=== PATIENT | female | born 1965 | race Caucasian/White ===

== ENCOUNTER → 2017-08-11 | Outpatient (REF) | payer OTHER ==
[~2017-08-11] MED LIST: ADV250INH INH; ALBU17IN INH; BUSP5TA PO; CYCL10TA PO; PROT1TAB2 PO; SING10TA32 PO; VICO7.5T11 PO
[2017-08-11 17:42] LABS: MEAN CORPUSCULAR HEMOGLOBIN 28.5 pg (27.0-33.0); MEAN CORPUSCULAR HGB CONC 33.1 g/dl (32.0-36.5); MEAN CORPUSCULAR VOLUME 86.2 fl (80.0-96.0); PLATELET COUNT, AUTOMATED 274 10^3/uL (150-450); RED CELL DISTRIBUTION WIDTH 15.1 % (11.5-14.5); WHITE BLOOD COUNT 9.1 10^3/uL (4.0-10.0)
[2017-08-11 17:47] LABS: ADD MANUAL DIFFER YES; BLASTS POS FLAG; POSITIVE DIFF POS FLAG; POSITIVE MORPH POS FLAG
[2017-08-11 17:48] LABS: DIFF SLIDE NUMBER 279
[2017-08-11 18:31] LABS: ERYTHROCYTE SEDIMENTATION RATE 37 mm/hr (0-30)
[2017-08-11 19:39] LABS: BANDS 1 % (< 11)
[2017-08-16 00:07] LABS: HEPTACARBOXYLPORPHYRIN URINE 2 ug/L (0-2); HEXACARBOXYLPORPHYRIN URINE <1 ug/L (0-1); PENTACARBOXYLPORPHYRIN URINE 2 ug/L (0-2); PORPHOBILINOGEN RANDOM URINE 0.6 mg/L (0.0-2.0); UROPORPHYRIN URINE 18 ug/L (0-20)
== END ==
LOC: M SFHCCLAY 13:58
PROVIDERS: ATTEND Family Medicine
DX: R21 Rash and other nonspecific skin eruption (principal); M54.2 Cervicalgia

== ENCOUNTER → 2017-09-02 | Outpatient (CLI) | payer OTHER ==
[~2017-09-02] MED LIST changes: +HEPARIN 1,000 UNITS/ML 10ML VIAL (FOR RADIOLOGY& DIALYSIS ONLY) As Ordered ONE; +ISOVUE-300 61% 50ML VIAL (Q9967) As Ordered ONE; +LIDOCAINE 2% MDV 20 ML VIAL As Ordered ONE; +MIDAZOLAM INJ 2 MG/2 ML VIAL (J2250) As Ordered ONE; +NORCO, ANEXSIA 5/325MG TABLET (HYDROcodone/ACETAMINOPHEN) As Ordered ONE; +NORCO, ANEXSIA 5/325MG TABLET (HYDROcodone/ACETAMINOPHEN) PO ONE; +ONDANSETRON 4MG/2ML VIAL (J2405) As Ordered ONE; +PROTAMINE SULF INJ 50 MG/5 ML VIAL (J2720) As Ordered ONE; +fentaNYL 100 MCG/2 ML INJECTION (J3010) As Ordered ONE
--- NOTE | 2017-09-10 12:14 | REPIR ---
DATE OF PROCEDURE: 09/02/2017 PREPROCEDURE DIAGNOSES: Left lower extremity claudication. Aortoiliac arterial atherosclerotic occlusive disease. POSTPROCEDURE DIAGNOSES: Left lower extremity claudication. Aortoiliac arterial atherosclerotic occlusive disease. PROCEDURE: Aortogram, iliofemoral angiogram, bilateral lower extremity angiography, left common iliac and external iliac artery angioplasty and stent with a 10 x 49 wall stent post dilated with an 8 x 4 balloon. Right common iliac artery angioplasty and stent with a 10 x 49 wall stent post dilated with an 8 x 4 balloon. Aortic angioplasty with two 8 x 4 balloons inflated simultaneously. Bilateral #6-[place] MYNX closure device. SURGEON: Dr. Georgi De La Torre. GREEN MEAT GRADER: Diana Cerna. ANESTHESIA: Local with moderate sedation with 6 mg of Versed, 300 mcg of fentanyl and 20 mL of 2% lidocaine. Moderate sedation time was from 10:22 a.m. to 11:40 a.m. for a total of 78 minutes. SPECIMENS: None. IMPLANTS: Bilateral #6-[place] MYNX closure device. Bilateral common iliac artery and external iliac artery angioplasty and stent with 10 x 49 wall stents. INDICATION: The patient is a 52-year-old female with bilateral lower extremity claudication left greater than right who underwent a CT angiogram showing severe calcific occlusive disease in the left common and external iliac artery. The patient will undergo an angiogram with possible angioplasty and/or stent. Risks, benefits and alternative treatment options were discussed with the patient. DESCRIPTION OF PROCEDURE: The patient was taken to the angiography suite and placed supine on the angiography table and then prepped and draped in a standard surgical fashion. A time-out was completed confirming the correct patient, procedure and laterality. The right common femoral artery was then cannulated with a micropuncture needle after anesthetizing the overlying skin with 1% lidocaine. A micropuncture wire was advanced through the micropuncture needle was upsized to a micropuncture sheath. The advanced wire was advanced through the micropuncture sheath which was upsized to a #5-[place] Islander sheath. An Omniflex catheter was advanced over the bent wire and placed in the aorta and aortogram was performed. The catheter was pulled down to the level of the bifurcation of the iliac arteries and then iliofemoral angiogram was performed. This showed severe disease in both common and external iliac arteries. The left common femoral artery was then cannulated and again a catheter and wire were placed in the aorta from the left femoral approach after which the common iliac arteries bilaterally were angioplastied and stented with 10 x 49 wall stents. These were post dilated with 8 x 4 balloons bilaterally. The aorta was then also angioplastied with two 8 x 4 balloons simultaneously. Followup angiogram showed good results with no residual stenosis and then the sheath were removed and bilateral MYNX closure devices used to close the arteriotomies with an [id number] minutes of adjuvant pressure applied for hemostasis. Dressing were then applied. The patient tolerated the procedure well. All instrument, sponge and needle counts were correct at the end of the case. There were no complications. Dr. De La Torre was present for and directed the entire case. The patient was transferred to the holding area and subsequently discharged in stable condition. RADIOLOGIC SUPERVISION INTERPRETATION: The aortogram showed the aorta to be patent except for the distal aorta, which showed stenosis at the common iliac arteries, which were then angioplastied and stented with 10 x 49 wall stents bilaterally. Completion aortogram showed resolution of the stenosis with good flow into the aorta and into the iliac arteries distally. Bilateral #6-[place] closure devices were used to close the arteriotomies in the right and left femoral arteries.
== END | disposition home or self-care (01) ==
LOC: M IRPRO 08:31
PROVIDERS: ATTEND Surgery Vascular Surgery
DX: I70.212 Atherosclerosis of native arteries of extremities with intermittent claudication, left leg (principal); I70.201 Unspecified atherosclerosis of native arteries of extremities, right leg; I70.0 Atherosclerosis of aorta
CPT/HCPCS: 37221; 37246; C1725; C1760; C1769; C1876; C1887; C1894; J2250; J2405; J2720; J3010; Q9967

== ENCOUNTER → 2017-09-30 | Outpatient (REF) | payer OTHER ==
[~2017-09-30] MED LIST changes: -HEPARIN 1,000 UNITS/ML 10ML VIAL (FOR RADIOLOGY& DIALYSIS ONLY) As Ordered ONE; -ISOVUE-300 61% 50ML VIAL (Q9967) As Ordered ONE; -LIDOCAINE 2% MDV 20 ML VIAL As Ordered ONE; -MIDAZOLAM INJ 2 MG/2 ML VIAL (J2250) As Ordered ONE; -NORCO, ANEXSIA 5/325MG TABLET (HYDROcodone/ACETAMINOPHEN) As Ordered ONE; -NORCO, ANEXSIA 5/325MG TABLET (HYDROcodone/ACETAMINOPHEN) PO ONE; -ONDANSETRON 4MG/2ML VIAL (J2405) As Ordered ONE; -PROTAMINE SULF INJ 50 MG/5 ML VIAL (J2720) As Ordered ONE; -fentaNYL 100 MCG/2 ML INJECTION (J3010) As Ordered ONE
[2017-09-30 18:15] LABS: ANION GAP 8 MEQ/L (8-16); BLOOD UREA NITROGEN 9 MG/DL (7-18); CALCIUM LEVEL 9.2 MG/DL (8.5-10.1); CARBON DIOXIDE LEVEL 26 MEQ/L (21-32); CHLORIDE LEVEL 108 MEQ/L (98-107); CREATININE FOR GFR 0.74 MG/DL (0.55-1.02); GLOMERULAR FILTRATION RATE > 60.0 (>51); GLUCOSE, FASTING 106 MG/DL (70-105); POTASSIUM SERUM 4.1 MEQ/L (3.5-5.1); SODIUM LEVEL 142 MEQ/L (136-145)
[2017-09-30 19:03] LABS: BASO % 0.4 % (0.0-1.0); EOS # 0.4 10^3/uL (0.0-0.50); EOS % 4.5 % (0.0-3.0); IMMATURE GRANULOCYTE % 0.2 % (0-0); LYMPH # 3.8 10^3/uL (1.5-4.5); LYMPH % 46.2 % (24.0-44.0); MEAN CORPUSCULAR HEMOGLOBIN 28.6 pg (27.0-33.0); MEAN CORPUSCULAR HGB CONC 32.9 g/dl (32.0-36.5); MEAN CORPUSCULAR VOLUME 86.9 fl (80.0-96.0); MONO # 0.6 10^3/uL (0.0-0.8); MONO % 7.3 % (0.0-5.0); NEUTROPHILS # 3.4 10^3/uL (1.8-7.7); NEUTROPHILS % 41.4 % (36.0-66.0); PLATELET COUNT, AUTOMATED 289 10^3/uL (150-450); RED CELL DISTRIBUTION WIDTH 14.9 % (11.5-14.5); WHITE BLOOD COUNT 8.2 10^3/uL (4.0-10.0)
== END ==
LOC: M SFHCCLAY 11:35
PROVIDERS: ATTEND Family Medicine
DX: R05 Cough (principal); E87.6 Hypokalemia

== ENCOUNTER → 2018-06-08 | Outpatient (CLI) | payer MEDICARE, OTHER | LOC: M CLY 13:44 | DX: R55 Syncope and collapse (principal); Z98.1 Arthrodesis status; Z79.899 Other long term (current) drug therapy | CPT/HCPCS: 71046; 84443 ==

== ENCOUNTER → 2018-06-08 | Outpatient (REF) | payer MEDICARE, OTHER ==
[2018-06-08 18:00] LABS: BASO % 0.3 % (0.0-1.0); EOS # 0.2 10^3/uL (0.0-0.50); EOS % 1.5 % (0.0-3.0); IMMATURE GRANULOCYTE % 0.4 % (0-3.0); LYMPH # 4.5 10^3/uL (1.5-4.5); LYMPH % 44.7 % (24.0-44.0); MEAN CORPUSCULAR HGB CONC 32.5 g/dl (32.0-36.5); MEAN CORPUSCULAR VOLUME 89.3 fl (80.0-96.0); MONO # 0.7 10^3/uL (0.0-0.8); MONO % 7.2 % (0.0-5.0); NEUTROPHILS # 4.6 10^3/uL (1.8-7.7); NEUTROPHILS % 45.9 % (36.0-66.0); PLATELET COUNT, AUTOMATED 247 10^3/uL (150-450); RED BLOOD COUNT 4.48 10^6/uL (4.00-5.40); RED CELL DISTRIBUTION WIDTH 14.5 % (11.5-14.5); WHITE BLOOD COUNT 10.1 10^3/uL (4.0-10.0)
[2018-06-08 18:14] LABS: ALBUMIN 3.4 GM/DL (3.2-5.2); ALBUMIN/GLOBULIN RATIO 0.89 (1.00-1.93); ALKALINE PHOSPHATASE 98 U/L (45-117); ALT/SGPT 11 U/L (12-78); ANION GAP 6 MEQ/L (8-16); AST/SGOT 5 U/L (7-37); BILIRUBIN,TOTAL 0.2 MG/DL (0.2-1.0); BLOOD UREA NITROGEN 12 MG/DL (7-18); CALCIUM LEVEL 9.3 MG/DL (8.5-10.1); CARBON DIOXIDE LEVEL 25 MEQ/L (21-32); CHLORIDE LEVEL 111 MEQ/L (98-107); CREATININE FOR GFR 0.79 MG/DL (0.55-1.30); FREE T4 0.98 NG/DL (0.76-1.46); GLOMERULAR FILTRATION RATE > 60.0 (>51); GLUCOSE, FASTING 108 MG/DL (70-100); POTASSIUM SERUM 4.4 MEQ/L (3.5-5.1); SODIUM LEVEL 142 MEQ/L (136-145); THYROID STIMULATING HORMONE 0.839 uIU/ML (0.358-3.740); TOTAL PROTEIN 7.2 GM/DL (6.4-8.2)
== END ==
LOC: M SFHCCLAY 13:34
DX: R55 Syncope and collapse (principal); Z79.899 Other long term (current) drug therapy
CPT/HCPCS: 84443

== ENCOUNTER → 2019-01-26 | Outpatient (REF) | payer MEDICARE, MEDICAID ==
[2019-01-26 17:39] LABS: ALT/SGPT 12 U/L (12-78); BILIRUBIN,TOTAL 0.3 MG/DL (0.2-1.0); BLOOD UREA NITROGEN 12 MG/DL (7-18); CALCIUM LEVEL 9.7 MG/DL (8.5-10.1); CARBON DIOXIDE LEVEL 26 MEQ/L (21-32); CHLORIDE LEVEL 108 MEQ/L (98-107); CREATININE FOR GFR 0.81 MG/DL (0.55-1.30); GLOMERULAR FILTRATION RATE > 60.0 (>51); GLUCOSE, FASTING 96 MG/DL (70-100); IRON (FE) 82 UG/DL (50-170); POTASSIUM SERUM 4.3 MEQ/L (3.5-5.1); SODIUM LEVEL 139 MEQ/L (136-145); TOTAL PROTEIN 7.6 GM/DL (6.4-8.2)
[2019-01-26 18:03] LABS: BASO % 0.3 % (0.0-1.0); EOS # 0.2 10^3/uL (0.0-0.50); EOS % 1.3 % (0.0-3.0); HEMATOCRIT 42.4 % (36.0-47.0); LYMPH # 4.5 10^3/uL (1.5-4.5); MEAN CORPUSCULAR HEMOGLOBIN 28.3 pg (27.0-33.0); MEAN CORPUSCULAR VOLUME 85.8 fl (80.0-96.0); MONO # 0.8 10^3/uL (0.0-0.8); MONO % 7.1 % (0.0-5.0); NEUTROPHILS # 5.7 10^3/uL (1.8-7.7); NEUTROPHILS % 50.9 % (36.0-66.0); PLATELET COUNT, AUTOMATED 328 10^3/uL (150-450); RED BLOOD COUNT 4.94 10^6/uL (4.00-5.40); WHITE BLOOD COUNT 11.2 10^3/uL (4.0-10.0)
== END ==
LOC: M SFHCCLAY 10:58
PROVIDERS: ATTEND Family Medicine
DX: I73.9 Peripheral vascular disease, unspecified (principal); R55 Syncope and collapse; E87.6 Hypokalemia; J01.01 Acute recurrent maxillary sinusitis; J45.909 Unspecified asthma, uncomplicated; F32.9 Major depressive disorder, single episode, unspecified; G47.09 Other insomnia; M54.2 Cervicalgia
CPT/HCPCS: 80053; 83540; 85025; G0463

== ENCOUNTER 2021-02-13 00:06 | Inpatient (IN) | payer MEDICARE, MEDICAID ==
[~2021-02-13] VITALS: Ht 177.8 cm; Wt 64.5 kg
[2021-02-13] VITALS (23 sets, daily range): BP systolic 103–152; BP diastolic 61–102
[~2021-02-13 00:06] MED LIST changes: +CYCL-707 PO; -CYCL10TA PO; -VICO7.5T11 PO; +VICO7.5T12 PO
[2021-02-13] MEDS ORDERED: MIDAZOLAM INJ 2MG/2ML VIAL (J2250 PER 1MG) IV PRN (04:10)
[2021-02-13] MEDS: IPRATROPIUM 0.5MG/ALBUTEROL 2.5MG INH SOL UD 3ML (DUONEB) NEB SCH ×5 (04:31→19:41)
[2021-02-13 04:54] LABS: ABG BASE EXCESS -2.6 (-2.0-2.0); ABG HCO3 23.2 MEQ/L (22.0-26.0); ABG O2 SATURATION 99.6 % (95.0-99.0); ABG PARTIAL PRESSURE CO2 43.8 mmHg (35.0-45.0); ABG STANDARD HCO3 22.3 MEQ/L (22.0-26.0); ABG TOTAL CO2 24.5 MEQ/L (22.0-29.0); ABG pH (ARTERIAL) 7.341 UNITS (7.350-7.450)
[2021-02-13] MEDS ORDERED: propofoL 1,000 MG in IV 1 EA IV SCH (04:55)
[2021-02-13 05:14] LABS: HEMATOCRIT 43.9 % (36.0-47.0); HEMOGLOBIN 14.1 g/dl (12.0-15.5); MEAN CORPUSCULAR HEMOGLOBIN 28.7 pg (27.0-33.0); MEAN CORPUSCULAR HGB CONC 32.1 g/dl (32.0-36.5); MEAN CORPUSCULAR VOLUME 89.2 fl (80.0-96.0); PLATELET COUNT, AUTOMATED 289 10^3/uL (150-450); RED BLOOD COUNT 4.92 10^6/uL (4.00-5.40); WHITE BLOOD COUNT 14.7 10^3/uL (4.0-10.0)
[2021-02-13 05:34] LABS: ATYPICAL LYMPH 3 % (0-5); LYMPHOCYTES 18 % (16-44); MONOCYTES 4 % (0-5); NEUTROPHILS 75 % (28-66); PLATELET ESTIMATE NORMAL (NORMAL)
[2021-02-13 05:41] LABS: ALBUMIN 3.4 GM/DL (3.2-5.2); ALT/SGPT 125 U/L (12-78); BILIRUBIN,TOTAL 0.3 MG/DL (0.2-1.0); BLOOD UREA NITROGEN 14 MG/DL (7-18); CALCIUM LEVEL 8.9 MG/DL (8.5-10.1); CARBON DIOXIDE LEVEL 25 MEQ/L (21-32); CHLORIDE LEVEL 113 MEQ/L (98-107); CHOLESTEROL LEVEL 305 MG/DL (< 200); CPK CREATINE PHOSPHOKINASE 116 U/L (26-192); CREATININE FOR GFR 0.73 MG/DL (0.55-1.30); GLOMERULAR FILTRATION RATE > 60.0 (>51); GLUCOSE, FASTING 133 MG/DL (70-100); LDH LACTATE DEHYDROGENASE 230 U/L (84-246); PHOSPHORUS LEVEL 3.5 MG/DL (2.5-4.9); POTASSIUM SERUM 4.1 MEQ/L (3.5-5.1); SODIUM LEVEL 142 MEQ/L (136-145); TOTAL PROTEIN 7.4 GM/DL (6.4-8.2); TRIGLYCERIDES LEVEL 229 MG/DL (<150); TROPONIN I 8.88 NG/ML (< 0.10)
[2021-02-13] MEDS ORDERED: CLOPIDOGREL 300 MG TAB (PLAVIX) NG STA (06:06)
[2021-02-13] MEDS ORDERED: ASPIRIN 325 MG TAB GT STA (06:06)
[2021-02-13] MEDS ORDERED: HEPARIN SOD (PORCINE) 5000UNITS/ML 1ML VIAL/SYRINGE IV PRN (06:10)
[2021-02-13] MEDS ORDERED: BREO1INH3 INH (06:14)
[2021-02-13] MEDS ORDERED: BACL10TA2 PO (06:14)
[2021-02-13] MEDS ORDERED: PROAAER10 INH (06:14)
[2021-02-13] MEDS ORDERED: ZOLP10TA2 PO (06:14)
[2021-02-13] MEDS: methylPREDNISolone 40MG 1ML VIAL IV SCH (06:29)
[2021-02-13] MEDS: HEPARIN DRIP 25,000 UNITS in IV 1 EA IV SCH (06:33)
--- NOTE | 2021-02-13 07:23 | HPE ---
HISTORY AND PHYSICAL DATE OF ADMISSION: 02/13/2021 CHIEF COMPLAINT: Altered mental status and respiratory failure. HISTORY OF PRESENT ILLNESS: Miss Jones is 55-year-old female with a past medical history of COPD/asthma, GERD, chronic neck and back pain, who presented at an outside hospital with complaints of lightheadedness and lethargy. History is obtained from the chart and from other collateral information as patient is currently intubated and unable to provide a history. As per the ED provider at the outside hospital, the patient had stated these symptoms started about two hours ago while she was at home. She had told them that she felt that she was going to pass out and then was also having episodes where she was dosing off. She had denied taking any drugs or any new medications. Of note, the patient's roommate had also presented to the same ED with altered mental status and periods of agitation as well. The roommate also had some bradycardia. There was a question of some ingestion with the patient and the roommate of unknown substance. She complained of some nausea but otherwise had not had any vomiting, denied any shortness of breath, no chest pain, no fevers or chills. The patient initially was lethargic but able to give some history. She did appear confused and had also been dosing off at times. The patient was at times hypertensive in the ED with systolic blood pressures up to 220 but was not tachycardic or hypoxic and had remained afebrile. She did have a U tox which was positive for opioids and she was given multiple doses of Narcan 1.2 mg and then additional 2 mg x3 as well as two doses of flumazenil 0.5 mg each. The patient was then noted to have worsening mental status, unarousable to sternal rub with periods, appears apneic and some sonorous respirations. GCS was reportedly 8 at that time. She continued to have pinpoint pupils as well as some hypertension. The patient was then intubated with etomidate and vecuronium reportedly with somewhat of a difficult intubation but was successful with a bougie assist with a size 6.5 endotracheal tube. There was thick white sputum suctioned post-intubation. A chest x-ray had confirmed the ET tube placement but no other reported abnormal findings in the lung turpin. The patient was started on sedation with propofol and did have improvement with her blood pressure as well. She was transferred here for further management. PAST MEDICAL AND SURGICAL HISTORY: 1. Asthma/COPD. 2. GERD. 3. Chronic neck and back pain. 4. Cholecystectomy. 5. Neck surgery. 6. Lumpectomy. 7. section. 8. Right knee surgery. 9. Bilateral femoral artery stents in 2017. 10. Insomnia. FAMILY HISTORY: Mother with a history of heart issues and pneumonia, hypertension and diabetes. There is a sibling with history of blood clot. SOCIAL HISTORY: Patient with a history of nicotine dependence, had previously been actively smoking but had previously denied any other recreational drug use. HOME MEDICATIONS: 1. Singulair. 2. Protonix. 3. Cyclobenzaprine. 4. Ibuprofen. 5. Ambien. 6. Albuterol p.r.n. 7. ALLERGIES: 1. ASPIRIN. 2. AMOXICILLIN. 3. CLAVULONIC ACID 4. QUESTIONABLY TO MORPHINE. PHYSICAL EXAMINATION: VITAL SIGNS: Temperature 97.2, pulse 89, respirations 15, O2 sat 100% on 50% FiO2. In: The patient was documented to have had at least 1.3 liters of normal saline at the outside ED. GENERAL: The patient is currently intubated and sedated on mechanical ventilation. She is responding to painful stimuli but is not following commands appropriately. HEENT: Normocephalic, atraumatic. Pupils are pinpoint bilaterally and sluggishly reactive to light. There are moist mucous membranes noted. There is an NG tube in place. NECK: Supple. Trachea is midline. There is no palpable cervical adenopathy, no JVD. CARDIAC: Somewhat distant heart sounds with a regular rate and rhythm. Normal S-1, S-2. Unable to clearly appreciate any murmurs. PULMONARY: There are coarse ventilator breath sounds with some rhonchi and diminished breath sounds with expiration and prolonged expiration. ABDOMEN: Soft, nontender, nondistended. No palpable organomegaly. EXTREMITIES: There is no significant lower extremity edema noted bilaterally. The patient has extensive tattoos on the extremities. LABORATORY DATA: From an outside facility showed WBC of 10.6, hemoglobin 13.4, platelets 261. Chemistries: Sodium is 140, potassium 4.2. Chloride is 103. Bicarb is 24.8, BUN 18, creatinine 0.9. Glucose is 118. There was no gas done prior to intubation except for a VBG with a reported normal pH. U tox was positive for opioids. Benzos, cocaine, alcohol negative. Salicylate and acetaminophen negative. AST, ALT 57/169, alk phos 170, troponin 0.019. Albumin is 3.8. UA showed trace ketones, negative leukocyte esterases, no bacteria, no WBC and trace protein. Respiratory: Viral panel was negative including SARS-CoV-2. Imaging at outside facility with head CT reportedly showing no acute intracranial pathology ASSESSMENT AND PLAN: Miss Jones is a 55-year-old female with a past medical history of asthma/COPD, chronic back and neck pain, GERD, who presented to an outside hospital with complaints of altered mental status with lethargy and presyncopal complaints. The patient was noted to be afebrile, was not tachycardic but did have episodes of hypertension. She had a U tox that was positive for opioids and upon review of her history, had previously been taking opioids for her chronic pain. The patient does not have it listed in her current medications. She may have had possible ingestion with her roommate who had also presented to the same ED later in the evening with altered mental status with agitation and confusion. The patient had been given multiple doses of Narcan in the ED and flumazenil with minimal improvement in her mental status. She became obtunded and was therefore intubated for airway protection due to her mental status. The patient was then transferred to ICU for further management. 1. Altered mental status likely secondary to intoxication of unknown substance. U tox was positive for opioids but patient did not respond to multiple doses of Narcan as well as flumazenil. Her pupils are still pinpoint. Suspect patient may have had ingestion of possible synthetic substance as her roommate had also presented with altered mental status and more periods of agitation and combativeness. Patient also had hypertension initially in ED, possible hypertensive urgency contributing to encephalopathy. We will continue her on propofol for sedation now while intubated and continue with versed p.r.n. for agitation. We will continue to monitor mental status and will attempt sedation medication and weaning trial in the morning to assess her mental status and for possible weaning from the ventilator. 2. Acute respiratory failure in the setting of intoxication/overdose. The patient is on ventilator currently with settings of PRBC of 450/15/45 and 7. She was intubated with size 6.5 ET tube and so has a slightly higher PEEP but will continue to wean down FiO2 as tolerated. On the ventilator, the patient appears to have evidence of obstructive airways disease and bronchospasm with elevated peak pressures and normal plateaus. Some of this is also likely due to increased resistance with her small ET tube as well as some increased secretions that were noted with suctioning. We will start her on nebulized bronchodilators with DuoNebs q.4 hours and we will also start her on Solu-Medrol. There was also possible difficult intubation initially in the outside hospital and they had required a bougie and so we will also help with any potential laryngeal edema prior to our weaning trials. We will continue daily chest x-rays and ABGs while intubated. Portable chest x-ray done here did not show any focal findings in the lung turpin. Her ET tube was somewhat deep and so that was adjusted. Continue with ventilator care with head elevation and chlorhexidine mouthwash. 3. Mild transaminitis. The patient reportedly did not have any abdominal pain, no significant nausea or vomiting. Her acetaminophen level was negative. We will continue to trend her liver function tests. We will also check CPK. 4. Hypertension. Improved with sedation, patient has remained normotensive. Initial EKG at outside facility with no acute ST changes and initial troponin was negative. Will repeat troponin to r/o. DVT prophylaxis: Lovenox. GI prophylaxis: Protonix. Code Status: FULL CODE. Total critical care time spent not including any procedures approximately one hour and 15 minutes. MTDD
[2021-02-13] MEDS ORDERED: ENOXAPARIN 40MG/0.4ML SYRINGE (J1650 PER 10MG) SC SCH (09:00)
[2021-02-13] MEDS ORDERED: CHLORHEXIDINE GLUCONATE 0.12 % 15ML UDC (PERIDEX ORAL RINSE) MT SCH (09:00)
[2021-02-13] MEDS: PANTOPRAZOLE 40MG VIAL (C9113 PER 1) IV SCH (09:44)
[2021-02-13 10:26] LABS: AMPHETAMINES LEVEL URINE NEGATIVE (NEGATIVE); BARBITURATES URINE NEGATIVE (NEGATIVE); BENZODIAZEPINES URINE NEGATIVE (NEGATIVE); CANNABINOIDS URINE NEGATIVE (NEGATIVE); COCAINE METABOLITE URINE NEGATIVE (NEGATIVE); METHADONE URINE NEGATIVE (NEGATIVE); OPIATES URINE NEGATIVE (NEGATIVE); PHENCYCLIDINE URINE NEGATIVE (NEGATIVE)
[2021-02-13 12:52] LABS: MB/CK RELATIVE INDEX 9.78 (< OR =4); TROPONIN I 7.49 NG/ML (< 0.10)
--- NOTE | 2021-02-13 13:11 | REP ---
INDICATION: Encephalopathy, On anticoagulation, R/O CVA. COMPARISON: None. TECHNIQUE: Axial CT images with multiplanar reformations. FINDINGS: No acute bleed or acute large vessel territorial infarct. Ventricles, cisterns and sulci are within normal limits. No mass effect or midline shift. No abnormal fluid collections. Scattered ill-defined hypodensities seen throughout the white matter is most consistent with sequelae of chronic microvascular ischemic disease. There is evidence of prior infarct in the vicinity of the right caudate with tissue loss and ex vacuo dilatation of the anterior horn of the right lateral ventricle. Paranasal sinuses and mastoid air cells are clear. IMPRESSION: No acute findings. 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 <Electronically signed by Elliot Quiroz > 02/13/21 0008
--- NOTE | 2021-02-13 13:43 | CCN ---
CRITICAL CARE NOTE DATE: 02/13/2021 UPDATE: The patient's troponins which were ordered upon arrival today the ICU had come back elevated at 8.88. Repeat EKG done at that time did not show any new concerning ST elevations or changes. She continued to remain normotensive and hemodynamically stable on the ventilator. She was given Aspirin and Plavix loading as well as being started on Heparin drip for anticoagulation. Patient has documented allergy to aspiring but tolerated the dose with no evidence of side effects. Further aspirin has been held but plavix is continued. This morning consult was also placed with Cardiology and she did also have an echocardiogram ordered. Later in the morning the patient was also noted to be more responsive on sedation. With weaning of the Propofol she was opening her eyes to voice and following some commands. She was placed on a weaning trial on the ventilator which she tolerated well with the pressure support trial. The patient was therefore extubated to BIPAP late in the morning. On BIPAP she was not tachypneic with good tidal volumes and saturation. She is answering questions briefly with one word but does continue to appear somewhat confused and is drowsy although does appear to be protecting and maintaining her airway well. Another head CT was ordered, particularly as she is now on anticoagulation. Her initial head CT at the outside hospital has shown evidence of an old prior CVA but no acute intracranial findings. The patient was also signed out to the Hospitalist Service. She will likely be taken off of the BIPAP later this afternoon. KAUSHAL
--- NOTE | 2021-02-13 20:17 | IPNPDOC ---
Subjective Date Seen The patient was seen on 02/13/21. Subjective Chief Complaint/HPI Mrs. Jones is a 55 year old female with COPD who was transferred here for AMS and respiratory failure. Patient was extubated this morning at 10:30AM. She was initially seen in the morning, but was still very lethargic. Did not answer my questions. She was seen again in the afternoon. She denies chest pain, nausea, or abdominal pain. She told me she was feeling okay. Denies remembering what happened this past week or last week. I spoke with her Ex- Boubacar. He defers to his son Peng Winchester to make medical decisions and gave permission to release information to him. Objective Physical Examination General Exam: Positive: Cooperative Eye Exam: Positive: EOMI; Negative: Sclera icteric Chest Exam: Positive: Clear to auscultation Heart Exam: Positive: Rate Normal, Regular Rhythm Abdomen Exam: Positive: Normal bowel sounds, Soft; Negative: Tenderness Neuro Exam: Positive: Normal Speech Psych Exam: Positive: Other (Confused); Negative: Anxiety Assessment /Plan Assessment Mrs. Jones is a 55 year old female with COPD who was transferred here for AMS and respiratory failure. Unclear cause for AMS although she may have taken a recreational drug. Her friend also was in the ED for lethargy/AMS. Son reports that she uses Delta8 and she may have been experimenting on another agent. Otherwise, she does have elevated troponin at 8.8. Cardiology, Dr. Wadsworth was consulted. Patient is on heparin drip and troponin are being trended. Plan/VTE VTE Prophylaxis Ordered?: Yes Plan 1. AMS/lethargy/acute respiratory failure -Unclear etiology -She may have experimented with something -Patient memory is currently poor, will revisit with patient about this topic when memory more clear -Hold sedating agents (zolpidem, baclofen, and cyclobenzaprine) 2. NSTEMI -Troponin at 8.8 -Cardiology consulted, recommendations appreciated -Heparin drip, trending troponin, echocardiogram -Continue with clopidogrel (aspirin allergy) 3. COPD -Continue Breo Ellipta and albuterol as needed -Solumedrol 4. GERD -Pantoprazole 5. DVT ppx -On heparin drip VS, I&O, 24H, Fishbone Vital Signs/I&O Vital Signs Date Time Temp Pulse Resp B/P (MAP) Pulse Ox O2 Delivery O2 Flow Rate FiO2 02/13/21 18:00 92 18 105/64 (78) 99 Nasal Cannula 2.0 02/13/21 16:00 30 02/13/21 16:00 99.5 I&O- Last 24 Hours up to 6 AM 02/13/21 05:59 Intake Total 0 ml Output Total 175 ml Balance -175 ml Laboratory Data 24H LABS Laboratory Tests 2 02/13/21 04:48: Blood Gas Bicarbonate Standard 22.3, Arterial Blood pH 7.341L, Arterial Blood Partial Pressure CO2 43.8, Arterial Blood Partial Pressure O2 211.0H, Arterial Blood Total CO2 24.5, Arterial Blood HCO3 23.2, Arterial Blood Base Excess - 2.6L, Arterial Blood Oxygen Saturation 99.6H 02/13/21 04:53: Neutrophils (%) (Auto) , Nucleated Red Blood Cells % (auto) 0.0, Neutrophils 75H, Lymphocytes (Manual) 18, Monocytes (Manual) 4, Atypical Lymphocytes 3, Red Blood Cell Morphology NORMAL, Platelet Estimate NORMAL, Anion Gap 4L, Glomerular Filtration Rate > 60.0, Calcium Level 8.9, Phosphorus Level 3.5, Total Bilirubin 0.3, Aspartate Amino Transf (AST/SGOT) 49H, Alanine Aminotransferase (ALT/SGPT) 125H, Alkaline Phosphatase 150H, Lactate Dehydrogenase 230, Total Creatine Kinase 116, Troponin I 8.88*H, Total Protein 7.4, Albumin 3.4, Albumin/Globulin Ratio 0.9L, Triglycerides Level 229H, Cholesterol Level 305H 02/13/21 04:54: Activated Partial Thromboplast Time 31.4 02/13/21 09:15: Urine Opiates Screen NEGATIVE, Urine Methadone Screen NEGATIVE, Urine Barbiturates Screen NEGATIVE, Urine Phencyclidine Screen NEGATIVE, Urine Amphetamines Screen NEGATIVE, Urine Benzodiazepines Screen NEGATIVE, Urine Cocaine Metabolite Screen NEGATIVE, Urine Cannabinoids Screen NEGATIVE 02/13/21 12:12: Activated Partial Thromboplast Time 41.7H, Total Creatine Kinase 92, Creatine Kinase MB 9.0H, Creatine Kinase MB Relative Index 9.78H, Troponin I 7.49*H CBC/BMP Laboratory Tests 02/13/21 04:53 Microbiology Microbiology 02/13/21 Gram Stain - Final, Resulted 02/13/21 Sputum Culture, Resulted Pending CATALINA AVILEZ DO Feb 13, 2021 20:17
--- NOTE | 2021-02-13 20:31 | ECGEPIP ---
[facility] Test Date: 2021-02-13 Pat Name: ARANZA REEVES Department: Room: [place] [address] Gender: Female Department Director: ESTER : 1965 Requested By: PHILIPPE BARNETT Order Number: [id number] Reading MD: Elieser Wadsworth Measurements Intervals [place] Rate: 85 P: 81 IN: 152 QRS: -57 QRSD: 74 T: 89 QT: 400 QTc: 476 Interpretive Statements Normal sinus rhythm Possible Left atrial enlargement Left anterior fascicular block Septal infarct , age undetermined, POSSIBLY ACUTE NO PRIOR Electronically Signed on 02-13-2021 20:31:06 EDT by Elieser Wadsworth
--- NOTE | 2021-02-13 22:28 | CR ---
CARDIOLOGY CONSULTATION DATE: 02/13/2021 REFERRING PHYSICIAN: Dr. Jing Noguera CONSULTING PHYSICIAN: Dr. Wadsworth REASON FOR CONSULTATION: Elevated troponin HISTORY OF PRESENT ILLNESS: Mrs. Jones is a 55-year-old female with a past medical history significant for chronic obstructive pulmonary disease, gastroesophageal reflux disease, chronic neck and back pain who had originally presented to [facility] with complaints of lightheadedness and lethargy. The history is mainly obtained from patient records at [place] as well as collateral as the patient is currently altered. It appears from the record that the patient had originally presented to the Emergency Department at [facility] [place] with a complaint of this lightheadedness and feeling tired. At the time she stated that the symptoms started approximately 2 hours before arriving at the E.D., while she was at home. The patient had described this as a feeling that she was going to pass out and had noted that she was dozing off. In the E.R. she had denied taking any drugs or new medications. As reported, the patient's roommate had apparently also arrived at the Emergency Department with altered mental status and agitation and was noted to be bradycardic. At that time there was some question of whether the patient and her roommate had ingested some form of toxic substance. The patient had denied any nausea, vomiting. She denied any shortness of breath, chest pain, fevers or chills. She was reported to be lethargic and dozing off at times. She was also hypertensive in the Emergency Department with systolic blood pressures upwards of 220. However she was not noted to be tachycardic or hypoxic. A urine toxicology was ordered at outside hospital which was positive for opioids, however was negative for any other findings. The patient was given Narcan 1.2 mg and an additional 2 mg x3 as well as 2 doses of Flumazenil. The patient was subsequently found to have worsening mental status. She became unarousable and had apneic respirations and a GCS of 8. The patient was noted to have pinpoint pupils as well as hypertension. She was subsequently intubated with Etomidate and Rocuronium. The patient was then transferred to [facility] for a higher level of care. On arrival to [facility] the patient was critically ill although stable. A cardiac troponin level was ordered which resulted in elevation at 8.88. The records from [facility] demonstrate that her troponin there was 0.012, indicating a significant elevation since her transfer. Cardiology Service was consulted for further evaluation and management of the patient's elevated troponin. PAST MEDICAL HISTORY: The patient's past medical history is significant for: 1. Asthma/COPD. 2. Gastroesophageal reflux disease. 3. Chronic neck and back pain. PAST SURGICAL HISTORY: The patient's past surgical history is significant for: 1. Cholecystectomy. 2. Lumpectomy. 3. Neck surgery. 4. Right knee surgery. 5. Bilateral femoral artery stents in 2017. 6. Caesarean section. FAMILY HISTORY: The patient reportedly has a family history of heart disease, hypertension and diabetes. She has a sibling with apparently a history of a blood clot. SOCIAL HISTORY: The patient has a history of nicotine dependence. It is unknown whether she has any other recreational or IV illicit drug use. HOME MEDICATIONS: 1. ProAir. 2. Baclofen. 3. Cyclobenzaprine. 4. Breo Ellipta. 5. Singulair. 6. Protonix. REVIEW OF SYSTEMS: The patient's review of systems was not completed as the patient is currently altered and intubated on mechanical ventilation. PHYSICAL EXAMINATION: VITAL SIGNS: Temperature 98.4, pulse 80, respiratory rate 18, blood pressure 109/61, pulse oximetry 99% on a ventilator. GENERAL APPEARANCE: The patient is currently intubated, sedated, on mechanical ventilation. She does respond to painful stimuli. She is not following commands but is currently sedated. She does remain critically ill. HEENT: Normocephalic and atraumatic. Eyes are anicteric. Pupils are equal and reactive although somewhat pinpoint. Her mucous membranes are pink and moist. There is an NG tube and an endotracheal tube currently in place. Dentition is fair. NECK: No jugular venous distention. Her neck is supple. Trachea is midline. CARDIAC: The patient has distant heart sounds, however regular rate and rhythm. There are no clicks, rubs or murmurs auscultated. PULMONARY: There is somewhat coarse breath sounds throughout and some scattered rhonchi. Overall diminished breath sounds. No wheezes or crackles are auscultated. ABDOMEN: Soft, nontender, nondistended. There is no palpable organomegaly. Normoactive bowel sounds. EXTREMITIES: No edema of the bilateral lower extremities. There are full and equal pulses bilateral upper and lower extremities. There are tattoos on the bilateral lower extremities. There is no clubbing or cyanosis of the fingers or digits. INPATIENT MEDICATIONS: 1. Plavix 25 mg. 2. Protonix 40 mg IV. 3. Heparin drip. 4. Solu-Medrol 40 mg. 5. DuoNeb required every 4 hours. LABORATORY DATA: Hematology - white blood cell count 14.7, hemoglobin 14.1, hematocrit 43.9, platelet count 289. Chemistries - sodium 142, potassium 4.1, chloride 113, carbon dioxide 25, BUN 14, creatinine 0.73, random glucose 133, calcium 8.9, phosphorous 3.5, total bilirubin 0.3, AST 49, ALT 125, alkaline phosphatase 150, lactic dehydrogenase 230, total creatinine kinase 116. Initial troponin 8.88, repeat 7.49. IMAGING: Head CT obtained demonstrating no acute findings, however a possible old infarct. ASSESSMENT AND PLAN: Miss Jones is a 55-year-old female with a past medical history significant for asthma or chronic obstructive pulmonary disease, chronic back and neck pain, gastroesophageal reflux disease, who presented to an outside hospital with complaints of lethargy and dizziness and then subsequently developed altered mental status and was subsequently intubated and placed on mechanical ventilation. The patient was noted to be hypertensive with systolic blood pressures upwards of 220. A urine toxicology is positive for opioids and the patient was given Narcan and Flumazenil for suspected toxic metabolic encephalopathy. The patient had been transferred to [facility] where laboratory evaluation demonstrated an elevated troponin at 8.88. Cardiology was consulted for further evaluation and management. 1. Elevated troponin - The patient is presenting with what appears altered mental status, likely secondary to a toxic metabolic encephalopathy. Unclear what medications or drugs the patient had taken. Her urine toxicology at [facility] came back positive for opioids, however on repeat at [facility], it was completely negative. At this time the patient is altered and not able to answer any questions as to whether she did ingest something or not. However her symptomatology certainly does follow that of a toxic metabolic encephalopathy, especially given the fact that the patient's roommate had presented with similar symptoms to the E.R. shortly after her. At this point in time she did have an elevation of troponin at 8.88. Pulmonary Critical Care Service had loaded the patient with Aspirin and Plavix and started her on a Heparin drip for a possible N-STEMI. There were no changes on EKG that were demonstrated. It is possible the patient took some type of synthetic medication. At this point in time the differential results as possible demand ischemia given the patient's critical illness or a possible N-STEMI. She is currently on medical therapy including Aspirin and Plavix and Heparin drip. She is too unstable for transfer and catheterization. If the patient can be extubated today, she may be able to provide additional history. Recommend continuing to trend troponin and EKG. We will continue medical therapy as she has already been Aspirin and Plavix loaded. We will continue Plavix and continue Aspirin 81 mg. Addendum MD Elena: Patient was seen and examined. Plan was discussed with . Briefly 55yo female without prior known CAD presenting with AMS likely due to intoxication from unknown substance and troponin elevation and minimal ST elevations in septal leads. Plan for supportive management as outline above. KAUSHAL
[2021-02-13 22:52] LABS: CK-MB VALUE MASS 5.8 NG/ML (<3.6); MB/CK RELATIVE INDEX 8.17 (< OR =4); TROPONIN I 4.98 NG/ML (< 0.10)
[2021-02-14] VITALS: BP 125/74
[2021-02-14] MEDS: IPRATROPIUM 0.5MG/ALBUTEROL 2.5MG INH SOL UD 3ML (DUONEB) NEB SCH ×3 (00:27→07:43)
[2021-02-14 02:00] VITALS: BP 118/73
[2021-02-14 03:24] LABS: BASO % 0.1 % (0.0-1.0); EOS % 0.1 % (0.0-3.0); HEMATOCRIT 38.8 % (36.0-47.0); HEMOGLOBIN 12.7 g/dl (12.0-15.5); LYMPH # 5.2 10^3/uL (1.5-5.0); LYMPH % 39.9 % (24.0-44.0); MEAN CORPUSCULAR HEMOGLOBIN 28.7 pg (27.0-33.0); MEAN CORPUSCULAR HGB CONC 32.7 g/dl (32.0-36.5); MEAN CORPUSCULAR VOLUME 87.8 fl (80.0-96.0); MONO # 1.3 10^3/uL (0.0-0.8); MONO % 9.8 % (2.0-8.0); NEUTROPHILS # 6.5 10^3/uL (1.5-8.5); NEUTROPHILS % 49.7 % (36.0-66.0); PLATELET COUNT, AUTOMATED 282 10^3/uL (150-450); RED BLOOD COUNT 4.42 10^6/uL (4.00-5.40)
[2021-02-14 04:00] VITALS: BP 124/79
[2021-02-14] MEDS: HEPARIN DRIP 25,000 UNITS in IV 1 EA IV SCH (04:05)
[2021-02-14 04:16] LABS: ALBUMIN 3.5 GM/DL (3.2-5.2); ALT/SGPT 85 U/L (12-78); BILIRUBIN,DIRECT 0.1 MG/DL (0.0-0.2); BILIRUBIN,TOTAL 0.4 MG/DL (0.2-1.0); BLOOD UREA NITROGEN 18 MG/DL (7-18); CALCIUM LEVEL 9.5 MG/DL (8.5-10.1); CARBON DIOXIDE LEVEL 29 MEQ/L (21-32); CHLORIDE LEVEL 111 MEQ/L (98-107); CREATININE FOR GFR 0.62 MG/DL (0.55-1.30); GLOMERULAR FILTRATION RATE > 60.0 (>51); GLUCOSE, FASTING 109 MG/DL (70-100); MAGNESIUM LEVEL 2.1 MG/DL (1.8-2.4); PHOSPHORUS LEVEL 2.7 MG/DL (2.5-4.9); POTASSIUM SERUM 3.8 MEQ/L (3.5-5.1); SODIUM LEVEL 143 MEQ/L (136-145); TOTAL PROTEIN 7.1 GM/DL (6.4-8.2)
[2021-02-14] MEDS: methylPREDNISolone 40MG 1ML VIAL IV SCH (05:34)
[2021-02-14 06:00] VITALS: BP 124/62
--- NOTE | 2021-02-14 07:56 | REP ---
INDICATION: intubated COMPARISON: 02/13/2021 TECHNIQUE: Portable AP view of the chest FINDINGS: No evidence for nasogastric tube or endotracheal tube. The mediastinum and cardiac silhouette are stable and within normal limits for portable technique. The lung turpin are clear without acute consolidation, effusion, or pneumothorax. Skeletal structures are intact. IMPRESSION: No acute cardiopulmonary process appreciated. <Electronically signed by Shawn Sanders > 02/14/21 [id number]
[2021-02-14 08:00] VITALS: BP 133/79
[2021-02-14] MEDS ORDERED: CLOP75TA2 PO (08:08)
[2021-02-14] MEDS: PANTOPRAZOLE 40MG VIAL (C9113 PER 1) IV SCH (08:36)
[2021-02-14] MEDS ORDERED: CLOPIDOGREL 75 MG TAB PO SCH (09:00)
[2021-02-14] MEDS ORDERED: ATORVASTATIN 20 MG TAB PO SCH (09:00)
[2021-02-14] MEDS ORDERED: ASPIRIN 325 MG TAB PO SCH (09:00)
--- NOTE | 2021-02-14 09:15 | REPVR ---
PROCEDURE INFORMATION: Exam: XR Chest Exam date and time: 02/13/2021 4:40 AM Age: 55 years old Clinical indication: Device placement; Ett placement (vent status); Additional info: Intubated TECHNIQUE: Imaging protocol: XR of the chest. Views: 1 view. COMPARISON: [place] CHEST 2 VIEW 06/08/2018 1:48 PM FINDINGS: Tubes, catheters and devices: NG tube is projecting over the stomach, distal tip is beyond the field of view. ET tube is likely terminating at the paulo, this needs to be retracted back about 3 cm for optimal positioning. Lungs: Unremarkable. No consolidation. Pleural spaces: Unremarkable. No pleural effusion. No pneumothorax. Heart/Mediastinum: Unremarkable. No cardiomegaly. Bones/joints: Curvature of the thoracic spine to the right. Anterior cervical fusion. IMPRESSION: ET tube is likely terminating at the paulo, this needs to be retracted back about 3 cm for optimal positioning. Electronically signed by: Andreia Koenig On 02/14/2021 09:15:31 AM
--- NOTE | 2021-02-14 09:55 | ECHO ---
DATE OF PROCEDURE: 02/13/2021 Age: 55 Gender: Female Height: 178 cm Weight: 70 kg REFERRING PHYSICIAN: Jing Noguera MD. INDICATION: Myocardial infarction. MEASUREMENTS: IVS 1.1 cm LV 3.7 cm LVPW 1.1 cm LA 3.7 cm Aorta 2.8 cm IVC 1.3 cm Mitral E wave velocity 66 cm/s Mitral A wave 92 cm/s E prime septal 6.2 cm/s E prime lateral 9.9 cm/s FINDINGS: This study is of acceptable technical quality. The patient is in sinus rhythm. Normal LV size. There is wall motion abnormality involving the mid and distal septum that is hypokinetic. Remaining LV segments have normal contractility. Overall estimated LVEF approximately 60%. Right ventricle is normal size and systolic function. Both atria appear normal. All four cardiac valves are reasonably well seen and appear normal. No pericardial effusion is noted. Inferior vena cava is of relatively small caliber and appropriately collapses with inspiration indicative of normal central venous pressure. The aortic root is normal. Aortic arch and abdominal aorta were poorly visualized. Doppler interrogation revealed no significant aortic stenosis or insufficiency. Same applies also for mitral, tricuspid, and pulmonic valves. Mitral inflow pattern and tissue Doppler imaging of the mitral annulus revealed grade 1 diastolic dysfunction. CONCLUSIONS: 1. Study is of acceptable technical quality, underlying sinus rhythm. 2. Normal LV size with septal wall motion abnormality and overall low normal LVEF, estimated 55% to 60%. Grade 1 diastolic dysfunction. 3. No significant valvular disease. 4. Likely normal central venous pressure, but unable to estimate pulmonary artery pressure. MTDD
--- NOTE | 2021-02-14 10:01 | IPN ---
PROGRESS NOTE DATE: 02/14/2021 SUBJECTIVE: Ms. Jones was seen and examined this morning. There have been no adverse events reported overnight. She was extubated yesterday. She is currently on room air. The patient herself does not recall the events leading up to her hospitalization. She does continue to deny taking any extra medications. She does state that she took her baclofen; however, denied any illicit drugs. At this current time, the patient has requested to leave against medical advice and it was recommended to the patient to stay. Review of her echocardiogram yesterday does demonstrate some septal wall abnormalities. It was recommended that the patient get a heart catheterization at some point. The patient stated that she does not want to go to [facility] to have this done. She states that she wants to leave AMA. The patient was made aware that there is a chance that she could worsen clinically or even , and she states that she understands the risk but wishes to leave AMA OBJECTIVE: VITAL SIGNS: Temperature 98.4, pulse 93, respiratory rate 16, blood pressure 124/79, pulse oximetry 97% on room air. GENERAL: The patient is awake, alert, and oriented. She does not appear in any acute distress. She is sitting up comfortably in bed. HEENT: Atraumatic, normocephalic. Eyes nonicteric. Trachea is midline. Mucous membranes are pink and moist. CARDIOVASCULAR: There is a normal S1, S2. There is a regular rate and rhythm. There are no clicks, rubs, or murmurs auscultated. There is no JVD. PULMONARY: The patient has somewhat decreased breath sounds at the bases, although overall clear. Good respiratory effort. No wheezes, rhonchi, or rales. ABDOMEN: Soft, nontender, and nondistended. Normoactive bowel sounds throughout. EXTREMITIES: No edema in the bilateral lower extremities. Full and equal pulses bilateral upper and lower extremities. She has tattoos on the bilateral lower extremities. INPATIENT CARDIAC MEDICATIONS: 1. Atorvastatin 40 mg daily. 2. Plavix 75 mg daily. 3. Heparin drip. LABORATORY DATA: Hematology: White blood cell 13.0, hemoglobin 12.7, hematocrit 38.8, platelet count 282,000. Chemistries: Sodium 143, potassium 3.8, chloride 111, CO2 of 29, BUN 18, creatinine 0.62, fasting glucose 109, calcium 9.5, phosphorus 2.7, magnesium 2.1, total bilirubin 0.4, AST 25, ALT 85, alkaline phosphatase 126. Cardiac troponin: Initial troponin 8.88, follow-up 7.49, and most recent 4.98. IMAGING DATA: Chest x-ray demonstrating no acute disease process. ASSESSMENT AND PLAN: Ms. Jones is a 55-year-old female with a past medical history significant for asthma/chronic obstructive pulmonary disease, chronic back and neck pain, gastroesophageal reflux disease who presented originally to an outside hospital with complaints of lethargy, dizziness, and subsequent developed altered mental status and was subsequently intubated and placed on mechanical ventilation. On presentation, she was noted to be hypertensive with systolic blood pressure upwards of 220. Urine toxicology at an outside hospital was positive for opioids. She was given Narcan and flumazenil for suspected toxic metabolic encephalopathy. The patient was transferred to [facility] for higher level of care. On presentation, a cardiac troponin level was found to be elevated at 8.88. Cardiology service was consulted for further evaluation and management. Elevated troponin: The patient initially appeared with altered mental status likely secondary to toxic metabolic encephalopathy. It is unclear which medication or drug she is taking. She is awake and alert today. On questioning, the patient denies taking any medications; however, she is somewhat resistant and is asking to leave against medical advice (AMA). Her story is certainly convincing for some type of toxic ingestion as her roommate had presented with similar symptoms to her to the ER at an outside hospital. She was extubated yesterday. Her troponins have trended down, initial troponin was 8.88 and repeat yesterday was 4.98. Her echocardiogram did demonstrate some septal wall abnormalities. Additionally, her EKG did show some slight ST elevations in the lateral leads. She is currently receiving Plavix 75 mg, atorvastatin 40 mg, and she is also on a heparin drip. Her aspirin was stopped as the patient states that she has an ALLERGY TO ASPIRIN. At this time, it is certainly possible the patient is having vaf-[id number] elevation myocardial infarction (NSTEMI) given her echocardiogram and elevated troponins. It was recommended that the patient at some point certainly get a cardiac catheterization. However, the patient states that she wants to leave AMA. The patient was instructed that if she does leave AMA, that she should follow-up with a restaurant expeditor or her primary care physician for referral to at least get a heart catheterization at some point. RECOMMENDATIONS: 1. Recommend continuing Plavix 75 mg daily. If she leaves AMA, this can be continued outpatient. 2. Continue atorvastatin 40 mg daily. 3. Ideally would recommend continuing heparin drip for three to five days for treatment of NSTEMI; however, if the patient leaves AMA obviously this would be discontinued. 4. Recommend patient to follow-up for a heart catheterization at some point if she is willing. Addendum MD Elena: Patient was seen and examined with . Agree with his note. It appears that patient will leave AMA. She was not receptive to our advice. KAUSHAL
--- NOTE | 2021-02-14 20:40 | ECGEPIP ---
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
--- NOTE | 2021-02-14 22:22 | DS.PDOC ---
Discharge Summary General Date of Admission Feb 13, 2021 at 03:30 Date of Discharge Feb 14, 2021 Specialist/Consultants Involve Pulmonology/Critical Care, Dr. Noguera Cardiology, Dr. Wadsworth Discharge Summary PROCEDURES PERFORMED DURING STAY: Extubation ADMITTING DIAGNOSES: 1. Toxic Metabolic Encephalopathy 2. Acute respiratory failure requiring intubation 3. COPD 4. GERD 5, Hypertension DISCHARGE DIAGNOSES: 1. Toxic Metabolic Encephalopathy 2. Acute respiratory failure requiring intubation 3. COPD 4. GERD 5, Hypertension 6. NSTEMI COMPLICATIONS/CHIEF COMPLAINT: Altered Mental Status Associated W/Intoxication. HISTORY OF PRESENT ILLNESS: Mrs. Jones is a 55 year old female with COPD and chronic pain who was sent here from another facility for acute respiratory failure requiring intubation. Patient was intubated on arrival to facility and information was obtained in chart and ED provider. Patient had lightheadedness and lethargy two hours prior to arriving to outside facility's ED. She felt like she was going to pass out and continued to doze off. She had a roommate who also presented to the same ED for similar symptoms. It is possible that patient and roommate may have ingested unknown substance. Utox was positive for opioids. While there, SBP was elevated up to 220. During her time in the ED, she became unresponsive, even to sternal rub. She had periods of apnea. They tried Narcan and flumazenil which was not effective. Patient was intubated and patient enriquez sferred to our facility. HOSPITAL COURSE: Mrs. Jones arrived at our facility. Lab work demonstrated elevated troponin. Cardiology was consulted and patient was started on heparin drip. Patient was also extubated at 10:30 AM. When I saw the patient, she was still confused which was most likely secondary to the sedation. The following morning, she was awake and wanted to leave against medical advice. She was A&Ox3. She understood that if she left, she could have worsening symptoms and . Patient signed paperwork and left against medical advice. Cardiology was aware that patient was leaving AMA and recommended sending Plavix to her pharmacy. Vital Signs/I&Os Vital Signs Date Time Temp Pulse Resp B/P (MAP) Pulse Ox O2 Delivery O2 Flow Rate FiO2 02/14/21 08:00 98.4 102 16 133/79 (97) 95 Room Air 02/13/21 20:00 2.0 02/13/21 16:00 30 I&O- Last 24 Hours up to 6 AM 02/14/21 06:00 Intake Total 377 ml Output Total 1135 ml Balance -758 ml Laboratory Data Labs 24H Laboratory Tests 2 02/14/21 03:14: Immature Granulocyte % (Auto) 0.4, Neutrophils (%) (Auto) 49.7, Lymphocytes (%) (Auto) 39.9, Monocytes (%) (Auto) 9.8H, Eosinophils (%) (Auto) 0.1, Basophils (%) (Auto) 0.1, Neutrophils # (Auto) 6.5, Lymphocytes # (Auto) 5.2H, Monocytes # (Auto) 1.3H, Eosinophils # (Auto) 0.0, Basophils # (Auto) 0.0, Nucleated Red Blood Cells % (auto) 0.0, Activated Partial Thromboplast Time 44.8H, Anion Gap 3L, Glomerular Filtration Rate > 60.0, Calcium Level 9.5, Phosphorus Level 2.7#, Magnesium Level 2.1, Total Bilirubin 0.4, Direct Bilirubin 0.1, Aspartate Amino Transf (AST/SGOT) 25, Alanine Aminotransferase (ALT/SGPT) 85H, Alkaline Phos phatase 126H, Total Protein 7.1, Albumin 3.5, Albumin/Globulin Ratio 1.0L CBC/BMP Laboratory Tests 02/14/21 03:14 Microbiology Microbiology 02/13/21 Gram Stain - Final, Resulted 02/13/21 Sputum Culture, Resulted Pending Discharge Medications Scheduled Clopidogrel Bisulfate (Clopidogrel) 75 Mg Tablet, 75 MG PO DAILY Fluticasone/Vilanterol (Breo Ellipta 200-25 Mcg INH) 1 Each Blst.w.dev, 1 PUFF INH DAILY, (Reported) Montelukast Sodium (Singulair) 10 Mg Tab, 10 MG PO DAILY, (Reported) Pantoprazole Sodium (Protonix) 40 Mg Tab, 40 MG PO DAILY, (Reported) Scheduled PRN Albuterol Sulfate (Proair Hfa) 8.5 Gm Hfa.aer.ad, 1 PUFF INH Q4H PRN for SHORTNESS OF BREATH, (Reported) Allergies Coded Allergies: aspirin (Verified Allergy, Severe, BREATHING PROBLEMS, 02/13/21) amoxicillin (Verified Adverse Reaction, Unknown, N/V, 02/13/21) clavulanic acid (Verified Adverse Reaction, Unknown, N/V, 02/13/21) morphine (Verified Adverse Reaction, Unknown, 02/13/21) CATALINA AVILEZ DO Feb 14, 2021 22:21
== END 2021-02-14 09:10 | disposition left against medical advice (07) | DRG 208 ==
LOC: M ICU 03:30
PROVIDERS: ADMIT Internal Medicine Pulmonary Disease; ATTEND Internal Medicine
PROC: 5A1935Z Respiratory Ventilation, Less than 24 Consecutive Hours (ICD-10-PCS; principal; 2021-02-13)
DX: J96.00 Acute respiratory failure, unspecified whether with hypoxia or hypercapnia (principal); I21.4 Non-ST elevation (NSTEMI) myocardial infarction; G93.41 Metabolic encephalopathy; K21.9 Gastro-esophageal reflux disease without esophagitis; J44.9 Chronic obstructive pulmonary disease, unspecified; I10 Essential (primary) hypertension; Z88.6 Allergy status to analgesic agent; Z88.5 Allergy status to narcotic agent; Z88.8 Allergy status to other drugs, medicaments and biological substances; Z79.899 Other long term (current) drug therapy

== ENCOUNTER → 2021-04-23 | Outpatient (CLI) | payer MEDICARE ==
[~2021-04-23] MED LIST changes: +BACL10TA2 PO; +BREO1INH3 INH; +CLOP75TA2 PO; +PROAAER10 INH; +ZOLP10TA2 PO
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
== END ==
LOC: M PAIN 13:00
PROVIDERS: ATTEND Family Medicine
DX: M54.2 Cervicalgia (principal); J45.909 Unspecified asthma, uncomplicated; M54.5 Low back pain; G47.00 Insomnia, unspecified; J32.9 Chronic sinusitis, unspecified; F17.210 Nicotine dependence, cigarettes, uncomplicated; K21.9 Gastro-esophageal reflux disease without esophagitis; M25.561 Pain in right knee; I73.9 Peripheral vascular disease, unspecified; I25.2 Old myocardial infarction; Z79.02 Long term (current) use of antithrombotics/antiplatelets; Z79.1 Long term (current) use of non-steroidal anti-inflammatories (NSAID); Z79.899 Other long term (current) drug therapy; Z88.1 Allergy status to other antibiotic agents; Z88.6 Allergy status to analgesic agent

== ENCOUNTER → 2021-05-25 | Outpatient (CLI) | payer MEDICARE ==
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
== END ==
LOC: M PAIN 09:45
PROVIDERS: ATTEND Family Medicine
DX: M54.2 Cervicalgia (principal); G89.29 Other chronic pain; J45.909 Unspecified asthma, uncomplicated; K21.9 Gastro-esophageal reflux disease without esophagitis; I25.2 Old myocardial infarction; F17.210 Nicotine dependence, cigarettes, uncomplicated; Z88.1 Allergy status to other antibiotic agents; Z88.6 Allergy status to analgesic agent; Z79.01 Long term (current) use of anticoagulants; Z79.51 Long term (current) use of inhaled steroids; Z79.899 Other long term (current) drug therapy

== ENCOUNTER → 2021-08-31 | Outpatient (CLI) | payer MEDICARE | LOC: M PAIN 09:45 | PROVIDERS: ATTEND Anesthesiology | DX: M79.18 Myalgia, other site (principal); M96.1 Postlaminectomy syndrome, not elsewhere classified; J45.909 Unspecified asthma, uncomplicated; K21.9 Gastro-esophageal reflux disease without esophagitis; I25.2 Old myocardial infarction; F17.210 Nicotine dependence, cigarettes, uncomplicated; Z88.1 Allergy status to other antibiotic agents; Z88.6 Allergy status to analgesic agent; Z79.51 Long term (current) use of inhaled steroids; Z79.01 Long term (current) use of anticoagulants; Z79.899 Other long term (current) drug therapy ==